=== PATIENT | female | born 1975 | race Caucasian/White ===

== ENCOUNTER 2020-04-15 18:55 | Emergency (ER) | payer OTHER, SELFPAY ==
--- NOTE | ~2020-04-15 | XR_ITS ---
EXAMINATION: XR abdomen/kub 1V EXAM DATE: 04/15/2020 19:34 INDICATION: Bloating. Right-sided abdominal pain under ribs. TECHNIQUE: Frontal projection(s) of the abdomen for interpretation. Comparison is made to prior exami nation from 04/02/2009. FINDINGS: There is moderate amount of colonic stool and gas. No small bowel dilation, nonobstructiv e bowel gas pattern. Calcifications in the pelvis are believed to be phleboliths. There is no orga nomegaly suspected. The bones are unremarkable. IMPRESSION: Moderate amount of colonic stool. Reviewed, dictated and finalized at location A.
--- NOTE | ~2020-04-15 | XR_ITS ---
EXAMINATION: XR chest 2V EXAM DATE: 04/15/2020 19:35 INDICATION: Pain under right ribs. TECHNIQUE: Frontal and lateral projections of the chest obtained and reviewed. There is no prior federico dy for comparison. FINDINGS: Lungs are moderately hyperinflated. The lungs are clear. There are no pleural effusions. The cardiomediastinal silhouette is within normal limits. There is no pneumothorax suspected. Ribs are unremarkable. There are no osteoblastic or osteolytic lesions identified. IMPRESSION: 1. No acute cardiopulmonary findings. 2. Hyperinflation. Reviewed, dictated and finalized at location A.
[2020-04-15 19:04] VITALS: BP 127/73; PULSE 87; RESP 16; TEMP 37.2; O2SAT 99
--- NOTE | 2020-04-15 19:12 | ED.GENADULT ---
HPI - General Adult General Chief complaint: Abdominal Pain Stated complaint: rib pain Time Seen by Provider: 04/15/20 19:12 Source: patient Mode of arrival: ambulatory Limitations: no limitations History of Present Illness HPI narrative: 44-year-old female patient presents to the [facility] with complaints right rib pain and abdominal pain for the past month. Patient states that she is also noticed she has gained about 17 pounds the last month with a decrease in appetite. Patient states that when she does eat she gets full very quickly. Patient does have a history of IBS and does have issues with constipation and diarrhea. Patient is an active smoker. Patient denies any chest pain, shortness of breath or coughing. Denies any fevers. Denies any vomiting or nausea at this time. Related Data Home Medications Medication Instructions Recorded Confirmed citalopram 40 mg PO DAILY 04/15/20 04/15/20 Allergies Allergy/AdvReac Type Severity Reaction Status Date / Time amoxicillin Allergy Unknown Unknown Unverified 04/15/20 19:20 Penicillins Allergy Unknown Unknown Verified 04/15/20 19:20 [email or web address] Allergy Unknown Unknown Unverified 04/15/20 19:20 Review of Systems Review of Systems: Narrative: CONSTITUTIONAL: Denies fever, chills, or sweats. EYES: Denies visual changes, redness, or discharge. ENT: Denies rhinorrhea, congestion, sore throat, or otalgia. CARDIOVASCULAR: Denies chest pain, palpitations, or edema. RESPIRATORY: Denies cough or dyspnea. GASTROINTESTINAL: Positive abdominal pain, denies nausea, vomiting, positive episodes of constipation and diarrhea. GENITOURINARY: Denies dysuria or hematuria. SKIN: Denies rash or itching. MUSCULOSKELETAL: Denies back pain, joint pain, or myalgia. NEUROLOGIC: Denies headache, numbness, or weakness. PSYCHIATRIC: Denies anxiety or depression. PMFSH Comments At the time of my signature I agree with nursing past medical history, surgical, social, and family history. There is no relevant family history pertinent to the presenting complaint. Exam Narrative: Exam Narrative: GENERAL: Well-appearing, well-nourished, and in no acute distress. HEAD: Normocephalic, atraumatic. EYES: PERRLA and EOMI. ENT: Nares clear, no rhinorrhea or epistaxis. Mucous membranes moist. NECK: Supple. No lymphadenopathy CHEST: Clear to auscultation. No respiratory distress. HEART: Regular rate and rhythm. No murmur heard. Normal peripheral pulses. ABDOMEN: Soft, slightly distended. No guarding, rebound tenderness, or rigid. Tenderness noted to the right lower quadrant with possible movable mass noted. Some slight tenderness also noted to the right upper quadrant. No pulsatilla masses. Hyperactive bowel sounds present in all four quadrants. No organomegaly. Negative Lynne?s sign. No periumbicial tenderness. No Supra public tenderness or distension. Good femoral pulses bilaterally. No hernia noted. No scars or surface trauma. EXTREMITIES: Normal range of motion. No edema. SKIN: Warm, dry, no rash. NEURO: No focal deficits. Alert and oriented x3. Course Reevaluation(s) Reevaluation #1: Reevaluated patient after her x-rays had resulted. Discussed with her that the x-rays do not show any obvious abnormalities at this time. Discussed with her that there is a lot of stool noted to the KUB which could be causing some of her issues. Discussed with her that I will go ahead and prescribe her some MiraLAX to help with constipation and I want her to do this a couple times a day until she starts producing results. Discussed with her we will see if this helps relieve some of the bloating, fullness feeling. Discussed with her that if she continues to have the symptoms along with weight gain and decreased appetite I would encourage her to follow-up with her primary doctor for further evaluation including possible CT scan and blood work. Patient verbalized understanding of this denies any other questions or concerns at this
== END 2020-04-15 20:03 | disposition home or self-care (01) ==
PROVIDERS: Emergency Provider Nurse Practitioner Family; PCP Family Medicine
DX: K59.00 Constipation, unspecified (principal); K58.1 Irritable bowel syndrome with constipation; F17.210 Nicotine dependence, cigarettes, uncomplicated
CPT/HCPCS: 71046; 74018; 99213; G0463

== ENCOUNTER 2020-09-13 08:46 | Emergency (ER) | payer OTHER, SELFPAY ==
--- NOTE | ~2020-09-13 | XR_ITS ---
EXAMINATION: XR chest 2V DATE: 09/13/2020 09:04 INDICATION: Chest pain and shortness of breath TECHNIQUE: Chest pain and shortness of breath COMPARISON: 04/15/2020 FINDINGS: The lungs are free of acute opacities. There is no pleural effusion or pneumothorax. The ca rdiomediastinal silhouette is normal. The visualized bones and soft tissues are unremarkable. IMPRESSION: 1. No acute cardiopulmonary abnormality. Reviewed, dictated and finalized at location A. [employer]
[2020-09-13 08:57] VITALS: BP 113/65; PULSE 80; RESP 18; TEMP 36.7; O2SAT 98
--- NOTE | 2020-09-13 09:18 | ED.URI ---
HPI - URI/Sore Throat General Chief Complaint: Upper Respiratory Infection Stated Complaint: chest pain/shortness of breath Time Seen by Provider: 09/13/20 08:50 Source: patient and RN notes reviewed Mode of arrival: ambulatory Limitations: no limitations History of Present Illness HPI Narrative: Patient presents today with a 4-day history of left-sided chest wall pain is significantly worse when she coughs, sneezes, deep breathes, or with movement or lying on her back. She has had a smoker's cough for the past month. She was seen in an ER in the end of July, where chest x-ray was negative and she was sent home with an albuterol inhaler. She followed up with her PCP at the beginning of August and was placed on a Z-Edwin for a bad cold , where her symptoms improved. She currently rates her pain 810 and has been taking Aleve PM at night to help her sleep. She has not been taking any medication during the day for pain. Denies shortness of breath or any sick symptoms at this time. Reports she smokes 0.5 packs/day. MD elicited complaint: other (Chest wall pain) Related Data Home Medications Medication Instructions Recorded Confirmed citalopram 40 mg PO DAILY 04/15/20 09/13/20 Allergies Allergy/AdvReac Type Severity Reaction Status Date / Time amoxicillin Allergy Unknown Rash Unverified 09/13/20 08:56 Penicillins Allergy Unknown Rash Verified 09/13/20 08:56 [email or web address] Allergy Unknown Unknown Unverified 04/15/20 19:20 Review of Systems Review of Systems: Narrative: CONSTITUTIONAL: Denies body aches, fever, chills, or sweats. EYES: Denies visual changes, redness, or discharge. ENT: Denies rhinorrhea, congestion, sore throat, or otalgia. CARDIOVASCULAR: Denies chest pain, palpitations, or edema. RESPIRATORY: Denies cough or dyspnea. GASTROINTESTINAL: Denies abdominal pain, nausea, vomiting, or diarrhea. GENITOURINARY: Denies dysuria or hematuria. SKIN: Denies rash, itching, or wounds. MUSCULOSKELETAL: Denies back pain, joint pain, or myalgia. + Left chest wall pain NEUROLOGIC: Denies headache, numbness, tingling, or weakness. PSYCH: Denies depression or anxiety. [facility] Social History Social History (Updated 09/13/20 @ 09:21 by Demi Whatley, [facility], ) Smoking packs per day: 0.5 Smoking cigarettes per day: 10.0 Smoking status: Current every day smoker Exam Narrative: Exam Narrative: GENERAL: Well-appearing, well-nourished, and in no acute distress. HEAD: Normocephalic, atraumatic. EYES: EOMI. No redness or drainage. Conjunctivae normal. ENT: Mucous membranes pink and moist. Nares clear. No rhinorrhea. TMs normal bilaterally. Throat normal. Uvula midline. NECK: Normal AROM. Supple. No lymphadenopathy. CHEST: No respiratory distress. Clear to auscultation. +Point tenderness along left sternal border. No additional tenderness to left chest, but patient localizes pain to entire left chest and upper back. HEART: Regular rate and rhythm. No murmur appreciated. Normal peripheral pulses. MUSCULOSKELETAL: No bony tenderness. EXTREMITIES: Normal range of motion. No edema. SKIN: Warm, dry, no rash. Capillary refill normal. Normal skin turgor. Fingertips are stained brown, likely due to tobacco use. NEURO: No focal deficits. Alert and oriented x3. Gait steady. PSYCH: Normal affect. No signs of depression or anxiety. Course Vital Signs Vital signs: Vital Signs Temperature 98.0 F 09/13/20 08:57 Pulse Rate 80 09/13/20 08:57 Respiratory Rate 18 09/13/20 08:57 Blood Pressure 113/65 09/13/20 08:57 Pulse Oximetry 98 09/13/20 08:57 Temperature 98.0 F 09/13/20 08:57 Pulse Rate 80 09/13/20 08:57 Respiratory Rate 18 09/13/20 08:57 Blood Pressure 113/65 09/13/20 08:57 Pulse Oximetry 98 09/13/20 08:57 Reviewed. Pt has been instructed to follow up with his PCP regarding his elevated blood pressure today. MDM - URI/Sore Throat Differential Diagnosis Differential diagnos
== END 2020-09-13 09:35 | disposition home or self-care (01) ==
PROVIDERS: Emergency Provider Nurse Practitioner; PCP Family Medicine
DX: M94.0 Chondrocostal junction syndrome [Tietze] (principal); F17.210 Nicotine dependence, cigarettes, uncomplicated
CPT/HCPCS: 71046; 99213; G0463

== ENCOUNTER 2022-03-21 18:06 | Emergency (ER) | payer OTHER, SELFPAY ==
--- NOTE | 2022-03-21 18:08 | ED.DIZZY ---
HPI - Dizziness General Chief Complaint: Dizziness Stated Complaint: feels very vertigo Time Seen by Provider: 03/21/22 18:08 Source: patient and RN notes reviewed History of Present Illness HPI Narrative: Patient is a 46-year-old female who presents the urgent care with complaints of dizziness upon standing and laying down. Patient states she is nauseated with laying down. Patient states that she woke up with the room spinning this morning and it seems to be intermittent throughout the day. Patient has not taken anything [id number] for her symptoms. Denies of any recent illness or upper respiratory infection. Denies of any palpitations or shortness of breath. Denies of any history of vertigo. No other acute complaints. No acute distress noted. Patient ambulates without difficulty. Patient aware of the plan of care. Some parts of this dictation were generated by voice recognition software and may contain typographical and/or grammatical inaccuracies. Related Data Home Medications Medication Instructions Recorded Confirmed citalopram 40 mg PO DAILY 04/15/20 03/21/22 buspirone [BuSpar] 10 mg PO TID 03/21/22 03/21/22 tramadol 50 mg PO Q4H PRN 03/21/22 03/21/22 Allergies Allergy/AdvReac Type Severity Reaction Status Date / Time amoxicillin Allergy Unknown Rash Verified 03/21/22 18:26 Penicillins Allergy Unknown Rash Verified 03/21/22 18:26 [email or web address] Allergy Unknown Unknown Verified 03/21/22 18:26 Review of Systems Review of Systems: CONSTITUTIONAL: Denies fever, chills, or sweats. EYES: Denies visual changes, redness, or discharge. ENT: Denies rhinorrhea, congestion, sore throat, or otalgia. CARDIOVASCULAR: Denies chest pain, palpitations, or edema. RESPIRATORY: Denies cough or dyspnea. GASTROINTESTINAL: Reports of nausea without vomiting, abdominal pain or diarrhea GENITOURINARY: Denies dysuria or hematuria. SKIN: Denies rash or itching. MUSCULOSKELETAL: Denies back pain, joint pain, or myalgia. NEUROLOGIC: Reports of dizziness All other systems reviewed are negative, except as documented in HPI. [facility] Social History Social History (Updated 09/13/20 @ 09:21 by Demi Whatley, [employer], [employer]) Smoking packs per day: 0.5 Smoking cigarettes per day: 10.0 Smoking status: Current every day smoker Comments At the time of my signature, I reviewed and agree with the nursing past medical, surgical, social, and family history. There is no relevant family history pertinent to the patient complaint. Exam Narrative: GENERAL: This is a well-nourished, well-developed patient, in no apparent distress. HEAD: normocephalic, atraumatic. EYES: PERRL. Sclera clear/white. Vision is grossly intact. EARS: External ears normal, auditory canals clear and without drainage, TMs normal without perforation. Hearing grossly intact. NOSE: External nose normal with no obvious nasal discharge, nares without redness, no rhinorrhea. THROAT: Mucous membranes moist NECK: Neck supple CARDIOVASCULAR: Regular rate and rhythm without murmurs, gallops, or rubs. RESPIRATORY: Clear to auscultation. Breath sounds equal bilaterally. No wheezes, rales, or rhonchi. SKIN: warm, intact with no suspicious lesions or rash, good texture and turgor. NEURO: awake, alert, and oriented to person, place and time. There were no obvious focal neurologic abnormalities. EXTREMITIES: No clubbing, cyanosis, or edema. Course Course Level of Care: Express Care Visit Vital Signs Vital signs: Vital Signs Temperature 98.8 F 03/21/22 18:12 Pulse Rate 81 03/21/22 18:12 Respiratory Rate 16 03/21/22 18:12 Blood Pressure 125/80 03/21/22 18:12 Pulse Oximetry 100 03/21/22 18:12 Temperature 98.8 F 03/21/22 18:12 Pulse Rate 81 03/21/22 18:12 Respiratory Rate 16 03/21/22 18:12 Blood Pressure 125/80 03/21/22 18:12 Pulse Oximetry 100 03/21/22 18:12 Reviewed MDM - Dizziness MDM Narrative Medical decision making narrative: Patient
[2022-03-21 18:12] VITALS: BP 125/80; PULSE 81; RESP 16; TEMP 37.1; O2SAT 100
== END 2022-03-21 18:48 | disposition home or self-care (01) ==
PROVIDERS: Emergency Provider Nurse Practitioner Family; PCP Family Medicine
DX: R42 Dizziness and giddiness (principal); F17.210 Nicotine dependence, cigarettes, uncomplicated
CPT/HCPCS: 99213; G0463

== ENCOUNTER 2022-10-17 12:15 | Emergency (ER) | payer OTHER, SELFPAY ==
[2022-10-17 12:24] VITALS: BP 104/64; PULSE 77; RESP 16; TEMP 36.9; O2SAT 100
--- NOTE | 2022-10-17 12:41 | ED.FEMALEGU ---
HPI - Female Genitourinary General Chief complaint: Dizziness Stated complaint: poss uti /poss vertigo History of Present Illness HPI Narrative: Patient presents with dizziness and urinary urgency. Patient states she has a history of vertigo and urinary tract infections. Patient reports that her urinary tract infections usually start out with dizziness. Patient denies any gross hematuria no flank pain denies any concern for STDs. Related Data Home Medications Medication Instructions Recorded Confirmed citalopram 40 mg tablet 40 mg PO DAILY 04/15/20 10/17/22 buspirone 10 mg tablet 10 mg PO TID 03/21/22 10/17/22 Allergies Allergy/AdvReac Type Severity Reaction Status Date / Time amoxicillin Allergy Unknown Rash Verified 10/17/22 12:43 Penicillins Allergy Unknown Rash Verified 10/17/22 12:43 [email or web address] Allergy Unknown Unknown Verified 10/17/22 12:43 Review of Systems Review of Systems: CONSTITUTIONAL: Denies fever, chills, or sweats. EYES: Denies visual changes, redness, or discharge. ENT: Denies rhinorrhea, congestion, sore throat, or otalgia. CARDIOVASCULAR: Denies chest pain, palpitations, or edema. RESPIRATORY: Denies cough or dyspnea. GASTROINTESTINAL: Denies abdominal pain, nausea, vomiting, or diarrhea. GENITOURINARY: Denies dysuria or hematuria. SKIN: Denies rash or itching. MUSCULOSKELETAL: Denies back pain, joint pain, or myalgia. NEUROLOGIC: Denies headache, numbness, or weakness. PSYCHIATRIC: Denies anxiety or depression. [facility] Social History Social History (Updated 09/13/20 @ 09:21 by Demi Whatley, [facility]) Smoking packs per day: 0.5 Smoking cigarettes per day: 10.0 Smoking status: Current every day smoker Comments At time of signature, agree with nursing past medical, surgical, social and family history. There is no relevant family history pertinent to the presenting complaint Exam Narrative: GENERAL: Well-appearing, well-nourished, and in no acute distress. HEAD: Normocephalic, atraumatic. EYES: PERRLA and EOMI. ENT: Nares clear, no rhinorrhea or epistaxis. Mucous membranes moist. NECK: Supple. CHEST: Clear to auscultation. No respiratory distress. HEART: Regular rate and rhythm. No murmur heard. Normal peripheral pulses. ABDOMEN: Soft, nontender, nondistended, normal active bowel sounds. EXTREMITIES: Normal range of motion. No edema. SKIN: Warm, dry, no rash. NEURO: No focal deficits. Alert and oriented x3. [place] Coma Scale Eye Opening: Spontaneous 4 Anu Coma Scale Motor: Obeys Commands 6 Anu Coma Scale Verbal: Oriented 5 Anu Coma Scale Total 15 Course Course Level of Care: Express Care Visit Vital Signs Vital signs: Vital Signs Temperature 36.9 C 10/17/22 12:24 Pulse Rate 77 10/17/22 12:24 Respiratory Rate 16 10/17/22 12:24 Blood Pressure 104/64 10/17/22 12:24 Pulse Oximetry 100 10/17/22 12:24 Oxygen Delivery Room Air 10/17/22 12:24 Temperature 36.9 C 10/17/22 12:24 Pulse Rate 77 10/17/22 12:24 Respiratory Rate 16 10/17/22 12:24 Blood Pressure 104/64 10/17/22 12:24 Pulse Oximetry 100 10/17/22 12:24 Oxygen Delivery Room Air 10/17/22 12:24 We will culture the urine and if culture warrants will: Changing antibiotic. MDM - Female Genitourinary Differential Diagnosis Differential diagnosis: Likely urinary tract infection, bacterial vaginosis, trichomoniasis, cervicitis, ovarian cyst, vaginitis, ruptured ovarian cyst, cyst of Bartholin's gland, cystitis and dysmenorrhea Lab Data Labs: Urine Glucose Negative Reference Range: Negative Urine Bilirubin Negative Reference Range: Negative Urine Ketone Negative Reference Range: Negative Urine Specific [place] 1.020 Ref
== END 2022-10-17 12:57 | disposition home or self-care (01) ==
PROVIDERS: Emergency Provider Nurse Practitioner Family; PCP Family Medicine
DX: N39.0 Urinary tract infection, site not specified (principal); F17.210 Nicotine dependence, cigarettes, uncomplicated
CPT/HCPCS: 81003; 87086; 99213; G0463